=== PATIENT | male | born 1975 | race Caucasian/White ===

== ENCOUNTER 2017-01-14 14:07 | Inpatient (IN) | payer SELFPAY ==
[~2017-01-14] VITALS: Ht 185.4 cm; Wt 79.4 kg
[2017-01-14] VITALS (7 sets, daily range): BP systolic 108–152; BP diastolic 58–78; PULSE 64–100; RESP 15–49; TEMP 97.7; O2SAT 95–99
--- NOTE | 2017-01-14 15:29 | PD ---
HPI Chief Complaint: Psychiatric Symptoms Time Seen by Provider: 15:26 Travel History International Travel<30 days: No Contact w/Intl Traveler<30days: No History of Present Illness HPI 41 year old male with PMH of T1DM, IVDU presents to the ED for psychiatric evaluation. Patient states that he's having troubles in his romantic relationship with his girlfriend and he has no other resources in [place] so he injected 100 units of 70/30 insulin this morning. Despite this he denies suicidal ideation. He endorses auditory hallucinations over the last 24-48 hours. On presentation he denies headache, dizziness, chest pain, shortness of breath, abdominal pain, nausea, vomiting, dysuria or weakness of the extremities. He states his last use of methamphetamine was yesterday. He endorses previous psychiatric hospitalization and previous suicide attempts. [facility] Social History Tobacco Use: No Allergies-Medications (Allergen,Severity, Reaction): Coded Allergies: UNOBTAINABLE (Unverified , 01/14/17) AMS Reported Meds & Prescriptions Reported Meds & Active Scripts Active Active Prescriptions or Reported Medications Unobtainable Review of Systems Except as stated in HPI: all other systems reviewed are Neg Physical Exam Narrative GENERAL: Well-nourished, well-developed alert white male, twitching on the stretcher, in no acute distress. SKIN: Focused skin assessment warm/dry. Tattoos. Large, well-healed scar on the left forearm patient states is secondary to abscess. HEAD: Normocephalic. EYES: No scleral icterus. No injection or drainage. PERRLA. NECK: Supple, trachea midline. No JVD or lymphadenopathy. CARDIOVASCULAR: Regular rate and rhythm without murmurs, gallops, or rubs. 2+ DP and radial pulses bilaterally. RESPIRATORY: Breath sounds clear and equal bilaterally. No accessory muscle use. GASTROINTESTINAL: Abdomen soft, non-tender, nondistended. Active bowel sounds. MUSCULOSKELETAL: No cyanosis, or edema. Patient is ambulatory, moves extremities spontaneously. BACK: Nontender without obvious deformity. No CVA tenderness. Data Data Last Documented VS Vital Signs Date Time Temp Pulse Resp B/P Pulse Ox O2 Delivery O2 Flow Rate FiO2 01/14/17 16:31 68 18 152/65 98 Room Air 01/14/17 15:49 97.7 Orders Complete Blood Count With Diff (01/14/17 15:24) Comprehensive Metabolic Panel (01/14/17 15:24) Urinalysis - C+S If Indicated (01/14/17 15:24) Psych Screen (01/14/17 15:24) Blood Glucose (01/14/17 15:24) Drug Screen, Random Urine (01/14/17 15:24) Alcohol (Ethanol) (01/14/17 15:24) Dextrose 50% In Wyatt (Vial) Inj (D50w (Vi (01/14/17 16:00) Dextrose 50% In Wyatt (Vial) Inj (D50w (Vi (01/14/17 16:45) Dextrose 50% In Wyatt (Syr) Inj (D50w (Syr (01/14/17 16:39) Electrocardiogram (01/14/17 16:45) Dextrose 5% In Wate 1000ml Inj (D5w 1000 (01/14/17 17:00) Admit Order (Ed Use Only) (01/14/17 17:13) Labs Laboratory Tests Test 01/14/17 15:30 White Blood Count 9.6 TH/MM3 Red Blood Count 4.76 MIL/MM3 Hemoglobin 15.0 GM/DL Hematocrit 42.3 % Mean Corpuscular Volume 88.9 FL Mean Corpuscular Hemoglobin 31.4 PG Mean Corpuscular Hemoglobin 35.4 % Concent Red Cell Distribution Width 13.7 % Platelet Count 216 TH/MM3 Mean Platelet Volume 9.2 FL Neutrophils (%) (Auto) 66.1 % Lymphocytes (%) (Auto) 24.6 % Monocytes (%) (Auto) 7.9 % Eosinophils (%) (Auto) 0.6 % Basophils (%) (Auto) 0.8 % Neutrophils # (Auto) 6.3 TH/MM3 Lymphocytes # (Auto) 2.4 TH/MM3 Monocytes # (Auto) 0.8 TH/MM3 Eosinophils # (Auto) 0.1 TH/MM3 Basophils # (Auto) 0.1 TH/MM3 CBC Comment DIFF FINAL Differential Comment Sodium Level 141 MEQ/L Potassium Level 3.3 MEQ/L Chloride Level 105 MEQ/L Carbon Dioxide Level 26.9 MEQ/L Anion Gap 9 MEQ/L Blood Urea Nitrogen 22 MG/DL Creatinine 1.16 MG/DL Estimat Glomerular Filtration 70 ML/MIN Rate Random Glucose 19 MG/DL Calcium Level 9.3 MG/DL Total Bilirubin 0.8 MG/DL Aspartate Amino Transf 17 U/L (AST/SGOT) Alanine Aminotransferase 24 U/L (ALT/SGPT) Alkaline Phosphatase 71 U/L Total Protein 6.9 GM/DL Albumin 4.0 GM/DL Ethyl Alcohol Level LESS THAN 3 MG/DL MDM Medical Decision Making Medical Screen Exam Complete: Yes Emergency Medical Condition: Yes Differential Diagnosis intentional overdoses versus hypoglycemia versus electrolyte abnormality versus Adjustment disorder versus anxiety versus bipolar versus depression versus dementia versus electrolyte disorder versus malingering versus mood disorder versus ODD versus psychosis versus PTSD versus schizophrenia versus schizoaffective disorder versus substance-induced mood disorder versus other Narrative Course 41 year old male with PMH of T1DM, IVDU presents to the ED for psychiatric evaluation. Patient states that he's having troubles in his romantic relationship with his girlfriend and he has no other resources in [place] so he injected 100 units of 70/30 insulin this morning. Per states that normal dose is 30 units before meals. He denies suicidal ideation. On presentation he denies headache, dizziness, chest pain, shortness of breath, abdominal pain, nausea, vomiting, dysuria or weakness of the extremities. He states his last use of methamphetamine was yesterday. He endorses previous psychiatric hospitalization and previous suicide attempts. Vitals reviewed. Pulse 100, respiratory rate 26 on presentation. Patient is awake, alert, answering questions appropriately. He is twitching and moving constantly in the stretcher. I suspect he is under the influence. Chest clear to auscultation bilaterally, abdomen soft, nontender, active bowel sounds. Equal pulses in the extremities. No lower extremity edema. Patient was transferred to a medical pod. IV was established. Patient was placed on continuous monitoring. Patient became very diaphoretic, urinated on himself. Fingerstick blood glucose 21. He was administered 25 mL's of 50% dextrose and water. Recheck of blood glucose after approximately 30 minutes is 61. Patient is sitting upright on the stretcher, appropriately interactive, eating a sandwich. Administered a second dose of 50% dextrose and initiated a D5W drip. Recheck fingerstick glucose 95. Vitals stable. CBC: no leukocytosis or anemia CMP: K 3.3 UA: pending Tox screen: pending Alcohol: <3 EKG: Rate 72, sinus rhythm. VT: 38, QRS 89, QTC 436. Evidence of early repolarization. Reviewed by Dr. Mcgarry. Psych screen pending. Patient was placed under Mims Act. He will be admitted to the ICU for q1 hour BGL checks and further evaluation. I spoke with Dr. Mckeon who agrees to accept the patient, admitted to Dr. Marks. Please see medicine and psych notes for disposition. Diagnosis Primary Impression: Hypoglycemia Additional Impression: Poisoning by insulin and oral hypoglycemic [antidiabetic] drugs, intentional self-harm, initial encounter Scripts Unable to Obtain Active Prescriptions or Reported Meds Shari Sheehan January 14, 2017 15:29
[2017-01-14] MEDS ORDERED: DEXTROSE 50% IN WATER 50 ML VIAL(D50) IV PUSH ONE ×2 (16:00→16:45)
[2017-01-14 16:39] LABS: AUTOMATED NEUTROPHIL # 6.3 TH/MM3 (1.8-7.7); BASOPHIL # 0.1 TH/MM3 (0-0.2); BASOPHIL % 0.8 % (0.0-2.0); EOSINOPHIL # 0.1 TH/MM3 (0-0.4); EOSINOPHIL % 0.6 % (0.0-4.0); HEMATOCRIT 42.3 % (39.0-51.0); HEMO FLAGS DIFF FINAL; LYMPH % 24.6 % (9.0-44.0); LYMPHOCYTE # 2.4 TH/MM3 (1.0-4.8); MEAN CELL VOLUME 88.9 FL (80.0-100.0); MEAN CORPUSCULAR HEMOGLOBIN 31.4 PG (27.0-34.0); MEAN CORPUSCULAR HGB CONC 35.4 % (32.0-36.0); MONO % 7.9 % (0.0-8.0); NEUT % 66.1 % (16.0-70.0); PLATELET COUNT 216 TH/MM3 (150-450); RED BLOOD COUNT 4.76 MIL/MM3 (4.50-5.90); RED CELL DISTRIBUTION WIDTH 13.7 % (11.6-17.2); WHITE BLOOD COUNT 9.6 TH/MM3 (4.0-11.0)
[2017-01-14] MEDS ORDERED: DEXTROSE 50% IN WATER 50 ML SYRINGE ONE (16:39)
--- NOTE | 2017-01-14 16:50 | PD ---
Physical Exam Date Seen by Provider: January 14, 2017 Time Seen by Provider: 16:44 Narrative The patient is a 41 year-old male was initially evaluated by the mid- level provider. Please refer to the initial history, physical, diagnostic evaluation, and treatment modality plan. Data Data Last Documented VS Vital Signs Date Time Temp Pulse Resp B/P Pulse Ox O2 Delivery O2 Flow Rate FiO2 01/14/17 16:31 68 18 152/65 98 Room Air 01/14/17 15:49 97.7 Orders Complete Blood Count With Diff (01/14/17 15:24) Comprehensive Metabolic Panel (01/14/17 15:24) Psych Screen (01/14/17 15:24) Blood Glucose (01/14/17 15:24) Alcohol (Ethanol) (01/14/17 15:24) Dextrose 50% In Wyatt (Vial) Inj (D50w (Vi (01/14/17 16:00) Dextrose 50% In Wyatt (Vial) Inj (D50w (Vi (01/14/17 16:45) Dextrose 50% In Wyatt (Syr) Inj (D50w (Syr (01/14/17 16:39) Electrocardiogram (01/14/17 16:45) Dextrose 5% In Wate 1000ml Inj (D5w 1000 (01/14/17 17:00) Admit Order (Ed Use Only) (01/14/17 17:13) Labs Laboratory Tests Test 01/14/17 15:30 White Blood Count 9.6 TH/MM3 Red Blood Count 4.76 MIL/MM3 Hemoglobin 15.0 GM/DL Hematocrit 42.3 % Mean Corpuscular Volume 88.9 FL Mean Corpuscular Hemoglobin 31.4 PG Mean Corpuscular Hemoglobin 35.4 % Concent Red Cell Distribution Width 13.7 % Platelet Count 216 TH/MM3 Mean Platelet Volume 9.2 FL Neutrophils (%) (Auto) 66.1 % Lymphocytes (%) (Auto) 24.6 % Monocytes (%) (Auto) 7.9 % Eosinophils (%) (Auto) 0.6 % Basophils (%) (Auto) 0.8 % Neutrophils # (Auto) 6.3 TH/MM3 Lymphocytes # (Auto) 2.4 TH/MM3 Monocytes # (Auto) 0.8 TH/MM3 Eosinophils # (Auto) 0.1 TH/MM3 Basophils # (Auto) 0.1 TH/MM3 CBC Comment DIFF FINAL Differential Comment Sodium Level 141 MEQ/L Potassium Level 3.3 MEQ/L Chloride Level 105 MEQ/L Carbon Dioxide Level 26.9 MEQ/L Anion Gap 9 MEQ/L Blood Urea Nitrogen 22 MG/DL Creatinine 1.16 MG/DL Estimat Glomerular Filtration 70 ML/MIN Rate Random Glucose 19 MG/DL Calcium Level 9.3 MG/DL Total Bilirubin 0.8 MG/DL Aspartate Amino Transf 17 U/L (AST/SGOT) Alanine Aminotransferase 24 U/L (ALT/SGPT) Alkaline Phosphatase 71 U/L Total Protein 6.9 GM/DL Albumin 4.0 GM/DL Ethyl Alcohol Level LESS THAN 3 MG/DL [facility] Medical Record Reviewed: Yes Supervised Visit with GUERA: Yes Interpretation(s) Laboratory Tests Test 01/14/17 15:30 White Blood Count 9.6 TH/MM3 Red Blood Count 4.76 MIL/MM3 Hemoglobin 15.0 GM/DL Hematocrit 42.3 % Mean Corpuscular Volume 88.9 FL Mean Corpuscular Hemoglobin 31.4 PG Mean Corpuscular Hemoglobin 35.4 % Concent Red Cell Distribution Width 13.7 % Platelet Count 216 TH/MM3 Mean Platelet Volume 9.2 FL Neutrophils (%) (Auto) 66.1 % Lymphocytes (%) (Auto) 24.6 % Monocytes (%) (Auto) 7.9 % Eosinophils (%) (Auto) 0.6 % Basophils (%) (Auto) 0.8 % Neutrophils # (Auto) 6.3 TH/MM3 Lymphocytes # (Auto) 2.4 TH/MM3 Monocytes # (Auto) 0.8 TH/MM3 Eosinophils # (Auto) 0.1 TH/MM3 Basophils # (Auto) 0.1 TH/MM3 CBC Comment DIFF FINAL Differential Comment Sodium Level 141 MEQ/L Potassium Level 3.3 MEQ/L Chloride Level 105 MEQ/L Carbon Dioxide Level 26.9 MEQ/L Anion Gap 9 MEQ/L Blood Urea Nitrogen 22 MG/DL Creatinine 1.16 MG/DL Estimat Glomerular Filtration 70 ML/MIN Rate Random Glucose 19 MG/DL Calcium Level 9.3 MG/DL Total Bilirubin 0.8 MG/DL Aspartate Amino Transf 17 U/L (AST/SGOT) Alanine Aminotransferase 24 U/L (ALT/SGPT) Alkaline Phosphatase 71 U/L Total Protein 6.9 GM/DL Albumin 4.0 GM/DL Ethyl Alcohol Level LESS THAN 3 MG/DL Differential Diagnosis Differential diagnosis includes intentional insulin overdose, hypoglycemia, dehydration, diabetic, depressive disorder NOS, substance induced mood disorder , mood disorder, bipolar affective disorder. Narrative Course I, Dr. Ramos, have reviewed the advance practice practitioner's documentation and am in agreement, met with the patient face to face, made the diagnosis, and the medical decision making was done by me. *My assessment and Findings: The patient is a 41 year-old male was initially evaluated by the mid-level provider, please refer to the initial history, physical, diagnostic evaluation, treatment modality plan. The patient has a history of diabetes, and took insulin 70/30, 100 units, approximately one to 2 hours prior to arrival. The patient was having auditory hallucinations after an argument with his girlfriend. The patient denies any outright suicidal ideation, but looks away, turns to the right, and states he "doesn't want to talk about ". EMS states the patient's blood sugar prior to arrival was 396. In the emergency department the patient's blood sugar fell to 24, he became confused and diaphoretic. The patient was immediately administered 1 amp of D50, his blood sugar elevated he became more awake and alert. The blood sugar was repeated 30 minutes later, was down to 61, therefore, he was administered D50 once again. The patient was provided food and was placed on a D5W drip. The patient will need admission to the intensive care unit as he will need every hour blood sugar checks for the next 6-8 hours. The patient was placed under a Mims act. Physician Communication Physician Communication The on-call adjunct phlebotomy instructor was paged for admission. Diagnosis Primary Impression: Hypoglycemia Additional Impression: Poisoning by insulin and oral hypoglycemic [antidiabetic] drugs, intentional self-harm, initial encounter Admitting Information Admitting Physician Requests: Admit Scripts Insulin NPH Isophane-Reg (Human) 70-30 Inj (Humulin 70-30 Inj)1,000 Unit/10 Ml Vial25 Unit SQ BID 30 Days Prov:Sumi Suazo MD 01/15/17 Insulin Aspart Inj (Novolog Inj)100 Unit/Ml Inj1 Unit SQ ACHS SLIDING SCALE 30 Days Prov:Sumi Suazo MD 01/15/17 Condition: Serious Trung Ramos MD January 14, 2017 16:50
[2017-01-14] MEDS: DEXTROSE 5% IN WATE 1000ML INJ 1,000 ML IV SCH ×2 (17:08→17:10)
[2017-01-14 17:14] LABS: ALKALINE PHOSPHATASE 71 U/L (45-117); ALT (GPT) 24 U/L (12-78); ANION GAP 9 MEQ/L (5-15); AST (GOT) 17 U/L (15-37); BICARBONATE 26.9 MEQ/L (21.0-32.0); BLOOD UREA NITROGEN 22 MG/DL (7-18); CHLORIDE 105 MEQ/L (98-107); GLOMERULAR FILTRATION RATE 70 ML/MIN (>89); POTASSIUM 3.3 MEQ/L (3.5-5.1); SODIUM (NA) 141 MEQ/L (136-145); TOTAL BILIRUBIN ADULT 0.8 MG/DL (0.2-1.0)
[2017-01-14] MEDS ORDERED: METOCLOPRAMIDE HCL 10 MG/2 ML VIAL IV PRN (18:45)
[2017-01-14] MEDS ORDERED: CHLORHEXIDINE GLUCONATE 2 % 1 PACK (2 CLOTHS) TOP PRN (18:45)
[2017-01-14] MEDS ORDERED: SODIUM CHLORIDE 0.9% FLUSH 10 ML FLUSH PRN (18:45)
[2017-01-14] MEDS ORDERED: ACETAMINOPHEN 325 MG TAB PO PRN (18:45)
[2017-01-14] MEDS ORDERED: RESP: ALBUTEROL 2.5 MG/IPRATROPIUM 0.5 MG NEB (PRN) INH (18:45)
[2017-01-14] MEDS ORDERED: ONDANSETRON HCL 4 MG/2 ML VIAL IV PRN (18:45)
[2017-01-14] MEDS ORDERED: MISCELLANEOUS NURSING INFORMATION XX SCH (18:45)
[2017-01-14] MEDS ORDERED: D5-1/2 NS + KCL 20 MEQ INJ 1,000 ML IV SCH (19:00)
--- NOTE | 2017-01-14 19:46 | HHI.HP ---
HPI Service Critical Care Medicine Primary Care Physician No Primary Care Physician Admission Diagnosis hypoglycemia, intentional overdose Diagnosis: Travel History International Travel<30 Days: No Contact w/Intl Traveler <30 Da: No Traveled to Known Affected Are: No History of Present Illness 41 year old male with insulin-dependent diabetes mellitus, history of polysubstance abuse including IV drugs, presents after intentional overdose with insulin. Patient has been having troubles in his romantic relationship with his girlfriend and he has no other resources in [place] so he injected 100 units of 70/30 insulin this morning. He states his last use of methamphetamine was yesterday. Review of Systems Constitutional: COMPLAINS OF: Diaphoretic episodes, Fatigue, Dizziness, DENIES : Fever, Weight gain, Weight loss, Chills, Change in appetite, Night Sweats Endocrine: DENIES: Heat/cold intolerance, Polydipsia, Polyuria, Polyphagia Eyes: COMPLAINS OF: Blurred vision, DENIES: Diplopia, Eye inflammation, Eye pain, Vision loss, Photosensitivity, Double Vision Ears, nose, mouth, throat: DENIES: Tinnitus, Hearing loss, Vertigo, Nasal discharge, Oral lesions, Throat pain, Hoarseness, Ear Pain, Running Nose, Epistaxis, Sinus Pain, Toothache, Odynophagia Respiratory: DENIES: Apneas, Cough, Snoring, Wheezing, Hemoptysis, Sputum production, Shortness of breath Cardiovascular: DENIES: Chest pain, Palpitations, Syncope, Dyspnea on Exertion , PND, Lower Extremity Edema, Orthopnea, Claudication Gastrointestinal: DENIES: Abdominal pain, Black stools, Bloody stools, Constipation, Diarrhea, Nausea, Vomiting, Difficulty Swallowing, Anorexia Genitourinary: DENIES: Sexual dysfunction, Urinary frequency, Urinary incontinence, Urgency, Hematuria, Dysuria, Nocturia, Penile Discharge, Testicular Pain, Testicular Swelling Musculoskeletal: DENIES: Joint pain, Muscle aches, Stiffness, Joint Swelling, Back pain, Neck pain Integumentary: DENIES: Abnormal pigmentation, Nail changes, Pruritus, Rash Hematologic/lymphatic: DENIES: Bruising, Lymphadenopathy Immunologic/allergic: DENIES: Eczema, Urticaria Neurologic: DENIES: Abnormal gait, Headache, Localized weakness, Paresthesias, Seizures, Speech Problems, Tremor, Poor Balance Psychiatric: DENIES: Anxiety, Confusion, Mood changes, Depression, Hallucinations, Agitation, Suicidal Ideation, Homicidal Ideation, Delusions Past Family Social History Allergies: Coded Allergies: UNOBTAINABLE (Unverified , 01/14/17) AMS Past Medical History Insulin-dependent diabetes mellitus Past Surgical History None Reported Medications Reported Meds & Active Scripts Active Active Prescriptions or Reported Medications Unobtainable Active Ordered Medications Current Medications Medications (Trade) Dose Ordered Sig/Willie Route PRN Reason Start Time Stop Time Status Last Admin Dose Admin Dextrose 1,000 ml @ 100 mls/hr Q10H IV 01/14/17 17:00 01/14/17 17:10 Potassium Chloride/Dextrose/ Sod Cl (D5-1/2 NS + KCl 20 Meq Inj) 1,000 ml @ 100 mls/hr Q10H IV 01/14/17 19:00 01/14/17 20:01 Sodium Chloride (NS Flush) 2 ml UNSCH PRN .XX FLUSH AFTER USING IV ACCESS 01/14/17 18:45 Sodium Chloride (NS Flush) 2 ml BID .XX 01/14/17 21:00 01/14/17 20:02 Acetaminophen (Tylenol) 650 mg Q6H PRN PO PAIN 1-10 AND/OR FEVER >101F 01/14/17 18:45 Ondansetron HCl (Zofran Inj) 4 mg Q6H PRN IV NAUSEA OR VOMITING 01/14/17 18:45 Metoclopramide HCl (Reglan Inj) 10 mg Q6H PRN IV NAUSEA OR VOMITING 01/14/17 18:45 Miscellaneous Information 1 [id number] XX 01/14/17 18:45 Chlorhexidine Gluconate (Chlorhexidine 2% Cloth) 3 pack Taper DAILY@04 TOP 01/15/17 04:00 01/11/18 03:59 Chlorhexidine Gluconate (Chlorhexidine 2% Cloth) 3 pack UNSCH PRN TOP HYGIENIC CARE 01/14/17 18:45 Family History Noncontributory Social History Polysubstance abuse including IV drugs and methamphetamine Physical Exam Vital Signs Vital Signs Date Time Temp Pulse Resp B/P Pulse Ox O2 Delivery O2 Flow Rate FiO2 01/14/17 19:09 73 20 136/74 99 Room Air 01/14/17 16:31 68 18 152/65 98 Room Air 01/14/17 16:30 65 20 95 Room Air 01/14/17 15:49 97.7 100 26 134/67 96 Physical Exam GENERAL: Well-nourished, well-developed patient. SKIN: Warm and dry. HEAD: Normocephalic. EYES: No scleral icterus. No injection or drainage. NECK: Supple, trachea midline. No JVD or lymphadenopathy. CARDIOVASCULAR: Regular rate and rhythm without murmurs, gallops, or rubs. RESPIRATORY: Breath sounds equal bilaterally. No accessory muscle use. GASTROINTESTINAL: Abdomen soft, non-tender, nondistended. MUSCULOSKELETAL: No cyanosis, or edema. BACK: Nontender without obvious deformity. No CVA tenderness. EXTREMITIES: No clubbing cyanosis or edema Laboratory Laboratory Tests Test 01/14/17 15:30 White Blood Count 9.6 Red Blood Count 4.76 Hemoglobin 15.0 Hematocrit 42.3 Mean Corpuscular Volume 88.9 Mean Corpuscular Hemoglobin 31.4 Mean Corpuscular Hemoglobin 35.4 Concent Red Cell Distribution Width 13.7 Platelet Count 216 Mean Platelet Volume 9.2 Neutrophils (%) (Auto) 66.1 Lymphocytes (%) (Auto) 24.6 Monocytes (%) (Auto) 7.9 Eosinophils (%) (Auto) 0.6 Basophils (%) (Auto) 0.8 Neutrophils # (Auto) 6.3 Lymphocytes # (Auto) 2.4 Monocytes # (Auto) 0.8 Eosinophils # (Auto) 0.1 Basophils # (Auto) 0.1 CBC Comment DIFF FINAL Differential Comment Sodium Level 141 Potassium Level 3.3 Chloride Level 105 Carbon Dioxide Level 26.9 Anion Gap 9 Blood Urea Nitrogen 22 Creatinine 1.16 Estimat Glomerular Filtration 70 Rate Random Glucose 19 Calcium Level 9.3 Total Bilirubin 0.8 Aspartate Amino Transf 17 (AST/SGOT) Alanine Aminotransferase 24 (ALT/SGPT) Alkaline Phosphatase 71 Total Protein 6.9 Albumin 4.0 Ethyl Alcohol Level LESS THAN 3 Result Diagram: 01/14/17 1530 01/14/17 1530 Assessment and Plan Problem List: (1) Hypoglycemia ICD Code: E16.2 Status: Acute (2) Poisoning by insulin and oral hypoglycemic [antidiabetic] drugs, intentional self-harm, initial encounter ICD Code: T38.3X2A Status: Acute Assessment and Plan Hypoglycemia - Due to insulin overdose - D5 infusion - Continue glycemic checks every hour in the ICU Insulin overdose - Intentional - Psych evaluation tomorrow Polysubstance abuse - Monitor for withdrawal - Ativan when necessary DVT GI prophylaxis - Early aggressive mobilization - 2200 ADA diet Critical Care: The total critical care time was 35 minutes. Time to perform other separately billable procedures was not included in the critical care time. Nestor Marks MD January 14, 2017 19:46
[2017-01-14] MEDS: SODIUM CHLORIDE 0.9% FLUSH 10 ML FLUSH SCH (20:02)
--- NOTE | 2017-01-14 22:37 | EKG ---
Date Performed: 01/14/2017 Time Performed: 17:37:13 PTAGE: 41 years EKG: Sinus rhythm ST ELEVATION, PROBABLY EARLY REPOLARIZATION BORDERLINE ECG NO PREVIOUS TRACING DOCTOR: Luc Oliver Interpretating Date/Time 01/14/2017 22:36:18
[2017-01-15] VITALS (15 sets, daily range): BP systolic 103–130; BP diastolic 53–74; PULSE 50–73; RESP 14–35; TEMP 97.9–98.4; O2SAT 96–100
[2017-01-15] MEDS: DEXTROSE 5% IN WATE 1000ML INJ 1,000 ML IV SCH ×2 (01:09→13:00)
[2017-01-15] MEDS ORDERED: CHLORHEXIDINE GLUCONATE 2 % 1 PACK (2 CLOTHS) TOP SCH (04:00)
[2017-01-15 04:18] LABS: AUTOMATED NEUTROPHIL # 4.4 TH/MM3 (1.8-7.7); BASOPHIL # 0.1 TH/MM3 (0-0.2); BASOPHIL % 0.8 % (0.0-2.0); EOSINOPHIL # 0.2 TH/MM3 (0-0.4); EOSINOPHIL % 2.3 % (0.0-4.0); HEMATOCRIT 40.8 % (39.0-51.0); HEMO FLAGS DIFF FINAL; LYMPHOCYTE # 2.2 TH/MM3 (1.0-4.8); MEAN CELL VOLUME 89.1 FL (80.0-100.0); MEAN CORPUSCULAR HEMOGLOBIN 30.8 PG (27.0-34.0); MEAN CORPUSCULAR HGB CONC 34.5 % (32.0-36.0); MONO % 7.1 % (0.0-8.0); NEUT % 59.8 % (16.0-70.0); PLATELET COUNT 191 TH/MM3 (150-450); RED BLOOD COUNT 4.58 MIL/MM3 (4.50-5.90); RED CELL DISTRIBUTION WIDTH 13.4 % (11.6-17.2); WHITE BLOOD COUNT 7.5 TH/MM3 (4.0-11.0)
[2017-01-15 04:47] LABS: ALKALINE PHOSPHATASE 66 U/L (45-117); ALT (GPT) 21 U/L (12-78); ANION GAP 7 MEQ/L (5-15); AST (GOT) 13 U/L (15-37); BICARBONATE 26.5 MEQ/L (21.0-32.0); BLOOD UREA NITROGEN 18 MG/DL (7-18); CHLORIDE 105 MEQ/L (98-107); GLOMERULAR FILTRATION RATE 77 ML/MIN (>89); SODIUM (NA) 138 MEQ/L (136-145); TOTAL BILIRUBIN ADULT 0.5 MG/DL (0.2-1.0)
[2017-01-15] MEDS: SODIUM CHLORIDE 0.9% FLUSH 10 ML FLUSH SCH (09:00)
[2017-01-15] MEDS ORDERED: DEXTROSE 50% IN WATER 50 ML VIAL(D50) IV PUSH PRN (10:15)
[2017-01-15] MEDS ORDERED: GLUCAGON 1 MG/ML VIAL OTHER PRN (10:15)
[2017-01-15] MEDS: LOW DOSE INSULIN NOVOLOG SUPPLEMENTAL SCALE SQ SCH ×2 (10:38→16:26)
--- NOTE | 2017-01-15 11:11 | RADRPT ---
EXAM DATE/TIME: 01/15/2017 10:46 [facility] COMPARISON: No previous studies available for comparison. INDICATIONS : Right hand pain and swelling. Impact injury. MEDICAL HISTORY : None. SURGICAL HISTORY : None. ENCOUNTER: Initial ACUITY: 2 days PAIN SCORE: 6/10 LOCATION: Right hand, 4th 5th metacarpal. FINDINGS: There is an oblique minimally displaced fracture involving the palmar aspect of base of the fourth me tacarpal. There slight distal deformity of the fifth metacarpal which may relate to prior boxers type fracture. Mineralization is normal and no significant articular abnormalities are identified. CONCLUSION: Slightly displaced base of fourth metacarpal fracture. Vikram Balderas MD on January 15, 2017 at 11:07 Board Certified Radiologist. This report was verified electronically.
--- NOTE | 2017-01-15 12:37 | PD.CONS ---
Provisional Diagnosis Admission Date January 14, 2017 at 17:15 [place] I. Adjustment disorder with depressed mood, something induced mood disorder, amphetamine use disorder [place] II. Unspecified personality disorder [place] III. Diabetes mellitus type 1 [place] IV. Conflicts with significant other [place] V. 55 History of Present Illness Service Psychiatry Consult Requested By Primary Care Physician No Primary Care Physician HPI The patient is a 41-year-old man, domicile with girlfriend and mother- in-law, unemployed, with psychiatric history of substance induced psychosis, 1 previous psychiatric hospitalization, one previous suicidal attempt, amphetamine use disorder, history of IVDU, medical history of diabetes mellitus type 1, who presents to the ED for psychiatric evaluation after overdosing with insulin. As per initial ER note "Patient states that he's having troubles in his romantic relationship with his girlfriend and he has no other resources in [place] so he injected 100 units of 70/30 insulin this morning. Per states that normal dose is 30 units before meals. He denies suicidal ideation. On presentation he denies headache, dizziness, chest pain, shortness of breath, abdominal pain, nausea, vomiting, dysuria or weakness of the extremities. He states his last use of methamphetamine was yesterday. Vitals reviewed. Pulse 100, respiratory rate 26 on presentation. Patient is awake, alert, answering questions appropriately. He is twitching and moving constantly in the stretcher. I suspect he is under the influence. Chest clear to auscultation bilaterally, abdomen soft, nontender, active bowel sounds. Patient was placed on continuous monitoring. Patient became very diaphoretic, urinated on himself. Fingerstick blood glucose 21. He was administered 25 mL's of 50% dextrose and water. Recheck of blood glucose after approximately 30 minutes is 61. Patient is sitting upright on the stretcher, appropriately interactive, eating a sandwich. Administered a second dose of 50% dextrose and initiated a D5W drip. Recheck fingerstick glucose 95." On psychiatric evaluation today patient is found in his room, he is laying down in his bed along with his girlfriend. He is interviewed privately, his girlfriend was used later for collateral information. Patient is states that he feels 100% better, he clarifies that yesterday he was confused, also under the influences of amphetamines. He has been having some conflict with his girlfriend who is also a drug user who was hospitalized recently due to an overdose. He says that he was just fired from his job yesterday "and we are having some money issues, we had an argument, she left the house, was not answering the phone calls and I decided to overdose, but not to , I don't want to , I just wanted to make appointment". At this moment patient denies depressive symptoms, he reports happy mood, he denies suicidal or homicidal ideation, he denies visual and auditory hallucinations. No paranoia, no delusions, no agitation, no aggressive behavior , not delirium, present. Patient is fully oriented 3, no attention deficit, no fluctuation of consciousness observed. Patient reports daily use of amphetamines, he fails in quantifying the amount that he uses. He denies the use of other drugs. He smokes about half to one pack of cigarettes per day. He reports occasional use of alcohol. Girlfriend, Ruchi Vaughn, confirms the patient had a part-time yesterday after argument. She says that he was fired from his job, he got home they had an argument and he overdosed. She says that they both have been struggling with drug abuse, financial situations, and homelessness. She clarifies that she does not think that the patient wanted to commit suicide, but to manipulate her. Situations like this happened before between them. She feels safe with the discharge. Review of Systems Constitutional: DENIES: Diaphoretic episodes, Fatigue, Fever, Weight gain, Weight loss, Chills, Dizziness, Change in appetite, Night Sweats Endocrine: DENIES: Heat/cold intolerance, Polydipsia, Polyuria, Polyphagia Eyes: DENIES: Blurred vision, Diplopia, Eye inflammation, Eye pain, Vision loss , Photosensitivity, Double Vision Ears, nose, mouth, throat: DENIES: Tinnitus, Hearing loss, Vertigo, Nasal discharge, Oral lesions, Throat pain, Hoarseness, Ear Pain, Running Nose, Epistaxis, Sinus Pain, Toothache, Odynophagia Respiratory: DENIES: Apneas, Cough, Snoring, Wheezing, Hemoptysis, Sputum production, Shortness of breath Cardiovascular: DENIES: Chest pain, Palpitations, Syncope, Dyspnea on Exertion , PND, Lower Extremity Edema, Orthopnea, Claudication Gastrointestinal: DENIES: Abdominal pain, Black stools, Bloody stools, Constipation, Diarrhea, Nausea, Vomiting, Difficulty Swallowing, Anorexia Genitourinary: DENIES: Sexual dysfunction, Urinary frequency, Urinary incontinence, Urgency, Hematuria, Dysuria, Nocturia, Penile Discharge, Testicular Pain, Testicular Swelling Musculoskeletal: DENIES: Joint pain, Muscle aches, Stiffness, Joint Swelling, Back pain, Neck pain Integumentary: DENIES: Abnormal pigmentation, Nail changes, Pruritus, Rash Hematologic/lymphatic: DENIES: Bruising, Lymphadenopathy Neurologic: DENIES: Abnormal gait, Headache, Localized weakness, Paresthesias, Seizures, Speech Problems, Tremor, Poor Balance Past Family Social History Coded Allergies: UNOBTAINABLE (Unverified , 01/14/17) AMS Unable to Obtain Active Prescriptions or Reported Meds Current Medications Medications (Trade) Dose Ordered Sig/Willie Route Start Time Stop Time Status Last Admin (D5W 1000 ml Inj) 1,000 ml @ 100 mls/hr Q10H IV 01/14/17 17:00 01/14/17 17:10 (NS Flush) 2 ml UNSCH PRN .XX 01/14/17 18:45 (NS Flush) 2 ml BID .XX 01/14/17 21:00 01/14/17 20:02 (Tylenol) 650 mg Q6H PRN PO 01/14/17 18:45 (Zofran Inj) 4 mg Q6H PRN IV 01/14/17 18:45 (Reglan Inj) 10 mg Q6H PRN IV 01/14/17 18:45 Miscellaneous Information 1 Q361D XX 01/14/17 18:45 (Chlorhexidine 2% Cloth) 3 pack Taper DAILY@04 TOP 01/15/17 04:00 01/11/18 03:59 01/15/17 04:00 (Chlorhexidine 2% Cloth) 3 pack UNSCH PRN TOP 01/14/17 18:45 (D50w (Vial) Inj) 25 ml UNSCH PRN IV PUSH 01/15/17 10:15 (Glucagon Inj) 1 mg UNSCH PRN OTHER 01/15/17 10:15 Family History Patient denies family psychiatric history Social History Patient lives with his girlfriend and mother in [place], he was born and raised in [place], he has been living in [place] for 3 months, he is now unemployed, he has no family support, his highest level of education is high school Patient's Strengths (min. 2) Verbal communication, support of girlfriend Physical Exam On physical exam no psychomotor agitation or retardation, no EPS, no stiffness, no tremors, no withdrawal, presents Vital Signs Vital Signs Date Time Temp Pulse Resp B/P Pulse Ox O2 Delivery O2 Flow Rate FiO2 01/15/17 12:00 98.1 68 16 112/58 96 01/15/17 07:15 Room Air I/O 01/14/17 01/14/17 01/15/17 08:00 16:00 00:00 Intake Total 707 ml Output Total 450 ml Balance 257 ml Lab Results BAL is negative, WBC 7.4, Hgb 4.5, HCT 40, NA is 138, K4.0, glucose initially was 19, then improved to 227 Mental Status Examination Appearance Age appearing, man, multiple visible tattoos, good hygiene, he is calm and cooperative Speech: Unremarkable Orientation: x3 Memory: Unremarkable Thought Process: Logical Thought Content: Unremarkable Language Fluent and spontaneous Fund of Knowledge Adequate for level of education Hallucination Type: None Attention Remarks No attention deficit present Suicidal Ideation: No Previous Suicide Attempts: Yes Homicidal Ideation: No Insight: Good Affect: Good Mood: Euthymic Motor Activity: Normal gait Assessment & Plan Problem List: (1) Substance induced mood disorder Assessment & Plan: On psychiatric evaluation today the patient denies depressive symptoms, denies anhedonia, denies sadness, denies hopelessness, denies helplessness, denies worthlessness, denies poor appetite, low concentration and energy, he denies suicidal and homicidal ideation, he denies visual and auditory hallucinations. He also denies anxiety, denies past or current symptomatology of laury, denies visual and auditory hallucinations. Patient is logical, coherent and relevant. Oriented 3, without any attention deficit, any fluctuation of consciousness, delusions, paranoia agitation or aggressive behavior present. His recent suicidal attempt by injecting insulin seems to be mostly the result of impulsive, poor judgmental, manipulative behavior, may be exacerbated by amphetamine intoxication, secondary to conflict with his girlfriend and not the effect of decompensation of a primary psychiatric condition. Patient has extensive history of substance abuse, self cutting, impulsive behavior. At this moment the patient does not meet criteria for psychiatric admission. A psychiatric hospitalization in this case would not be beneficial or therapeutic. Extensive psychoeducation, supportive motivation provided. Patient would benefit more of a long-term comprehensive rehabilitation program. Both, patient and girlfriend verbalized agreement and understanding with plan. Mims act will be lifted. ICD Code: F19.94 Assessment & Plan Estimated LOS: René Mejía MD January 15, 2017 12:36
[2017-01-15] MEDS ORDERED: HUMU70IN SQ (13:35)
[2017-01-15] MEDS ORDERED: NOVOLOGSS SQ (13:35)
--- NOTE | 2017-01-15 13:55 | HHI.PR ---
Subjective Remarks Patient seen and examined resting in bed afebrile Blood glucose started to increase reaching 300s Patient told me he used to take Lantus however he switch to 7034 insurance coverage purposes and he takes 30 units twice a day I discussed with the nurse in length, the plan is to discharge patient later today once blood sugar under control Objective Vitals Vital Signs Date Time Temp Pulse Resp B/P Pulse Ox O2 Delivery O2 Flow Rate FiO2 01/15/17 12:00 73 01/15/17 12:00 98.1 68 16 112/58 96 01/15/17 10:30 50 01/15/17 08:00 68 01/15/17 07:15 98 Room Air 01/15/17 07:00 97.9 68 16 103/53 96 01/15/17 06:00 62 01/15/17 06:00 62 14 125/67 98 01/15/17 05:00 64 17 123/61 98 01/15/17 04:00 58 01/15/17 04:00 98.0 58 15 107/58 96 01/15/17 03:00 60 28 114/70 97 01/15/17 02:00 68 01/15/17 02:00 68 35 109/74 98 01/15/17 01:00 62 15 106/55 97 01/15/17 00:00 66 01/15/17 00:00 97.9 66 16 110/55 97 01/14/17 23:00 64 15 108/58 98 01/14/17 22:00 78 37 114/68 98 01/14/17 22:00 78 01/14/17 21:00 76 49 117/62 95 01/14/17 20:00 97.7 78 29 119/78 98 01/14/17 20:00 78 01/14/17 19:30 Room Air 01/14/17 19:09 73 20 136/74 99 Room Air 01/14/17 16:31 68 18 152/65 98 Room Air 01/14/17 16:30 65 20 95 Room Air 01/14/17 15:49 97.7 100 26 134/67 96 I/O 01/14/17 01/14/17 01/14/17 01/15/17 01/15/17 01/15/17 07:00 15:00 23:00 07:00 15:00 23:00 Intake Total 707 ml 440 ml Output Total 450 ml 550 ml Balance 257 ml -110 ml Intake Oral 240 ml 240 ml IV Total 467 ml 200 ml Output Urine Total 450 ml 550 ml Result Diagram: 01/15/1734701/15/17346 Objective Remarks GENERAL: This is a well-nourished, well-developed patient, in no apparent distress. SKIN: No rashes, warm and dry HEAD: Atraumatic. Normocephalic. EYES: Pupils equal round and reactive. Extraocular motions intact. No scleral icterus. ENT: Nose without bleeding, or drainage, Airway patent. NECK: Trachea midline. Supple CARDIOVASCULAR: Regular rate and rhythm without murmurs, gallops, or rubs. RESPIRATORY: Fair air entry bilaterally. No wheezes, rales, or rhonchi. GASTROINTESTINAL: Abdomen soft, non-tender, nondistended. Positive bowel sounds MUSCULOSKELETAL: Extremities without clubbing, cyanosis, or edema. Pedal pulses appreciated NEUROLOGICAL: Awake and alert. Moves all extremity. Normal speech.no focal neurological deficit A/P Assessment and Plan 5\2: Patient assessed by psychiatry, they lifted Prasanna act, blood glucose which 300 I will resume his 7030 and cover with insulin sliding scale, possible discharge of blood sugar gets under control later on today Addendum: Received call from the nurse blood glucose 356, we'll hold on discharge increase 7030 tonight plan to discharge in a.m. when blood sugar better control A/P: Hypoglycemia - Due to insulin overdose - D5 infusion - Continue glycemic checks every hour in the ICU Insulin overdose with? Suicidal ideation - Intentional - Appreciate psych consultation, they decided to lift Mims act Polysubstance abuse - Monitor for withdrawal - Ativan when necessary DVT GI prophylaxis - Early aggressive mobilization - 2199 ADA diet Sumi Suazo MD January 15, 2017 13:55
[2017-01-15] MEDS ORDERED: INSULIN HUMAN NPH/R 70/30 1,000 UNITS/10 ML VIAL SQ SCH ×2 (14:00→17:00)
--- NOTE | 2017-01-16 09:35 | PD.AMA ---
Against Medical Advice Note Discharge Disposition: Against Medical Advice Pt Condition on Discharge: Fair AMA Statement Patient Basil Dowd has decided to leave the hospital against medical advice. This patient has the capacity to refuse care and understands the risks of leaving, including permanent disability and/or , and has had an opportunity to ask questions about his condition. The patient has been informed that he may return for care at any time, and follow up has been arranged/ advised. Sumi Suazo MD January 16, 2017 09:35
--- NOTE | 2017-01-16 09:36 | HHI.PR ---
Addendum to Inpatient Note Additional Information Disposition patient left AMA Condition on discharge: Improved Diabetic diet ADA 1800 healthy heart Diet as tolerated Ad Mira activity Rx written: None Follow-up with primary care physician Sumi Suazo MD January 16, 2017 09:35
== END 2017-01-15 18:59 | disposition left against medical advice (07) | DRG 918 ==
LOC: NEPD 14:07 → NEDA 17:15 → N03A 19:29
PROVIDERS: ADMIT Hospitalist; ATTEND Hospitalist
DX: T38.3X2A Poisoning by insulin and oral hypoglycemic [antidiabetic] drugs, intentional self-harm, initial encounter (principal); E11.649 Type 2 diabetes mellitus with hypoglycemia without coma; Y92.9 Unspecified place or not applicable; F19.94 Other psychoactive substance use, unspecified with psychoactive substance-induced mood disorder; F17.210 Nicotine dependence, cigarettes, uncomplicated; Z59.0 Homelessness; Z79.4 Long term (current) use of insulin; Z91.5 Personal history of self-harm
CPT/HCPCS: 73130; 80053; 80307; 82948; 85025; 87641; 93005; 96374; 96376; J1815; J3480; J7070